=== PATIENT | female | born 1995 | race Caucasian/White ===

== ENCOUNTER 2016-10-30 23:13 | Inpatient (IN) ==
[2016-10-30] MEDS: Ringers Solution, Lactated 1,000 ML IVC SCH ×2 (17:52→19:33)
[2016-10-30 18:12] LABS: Basophils % 0.1 %; Eosinophils # 0.1 K/mcL (0.0-0.6); Eosinophils % 1.3 %; Hemoglobin 11.9 g/dL (11.5-15.4); Immature Granulocytes % 0.4 % (0-4); Lymphocytes # 1.9 K/mcL (0.6-4.6); Lymphocytes % 20.2 %; Mean Corpuscular HGB Conc 33.1 g/dL (31.6-35.5); Mean Corpuscular Hemoglobin 30.1 pg (28.0-33.3); Mean Corpuscular Volume 90.9 fL (83.0-100.0); Mean Platelet Volume 10.7 fL (9.4-12.4); Monocytes # 0.6 K/mcL (0.0-1.3); Monocytes % 6.5 %; Neutrophils # 6.7 K/mcL (1.6-8.9); Platelet Count 266 K/mcL (140-400); Red Blood Count 3.96 M/mcL (3.82-4.97); Red Cell Distribution Width 13.4 % (11.5-14.5); Segmented Neutrophils % 71.5 %
[2016-10-30 18:16] LABS: Bilirubin,Urine Negative (Negative); Blood,Urine Negative (Negative); Clarity,Urine Cloudy (Clear); Color,Urine Yellow (Yellow); Glucose,Urine (UA) Normal (Normal); Ketones,Urine Negative (Negative); Leukocyte Esterase,Urine Moderate (Negative); Nitrite,Urine Negative (Negative); Protein,Urine Negative (Neg-Trace); Specific Gravity,Urine 1.012 (1.010-1.025); Urobilinogen,Urine Normal (Normal)
[2016-10-30 18:19] LABS: Bacteria,Urine Few per hpf (None-Few); Hyaline Casts,Urine None Seen per lpf (None-Few); RBC,Urine 0-3 per hpf (0-3); Squamous Epithelial Cell,Urine Many per lpf (None-Few); WBC,Urine 15-30 per hpf (0-3)
[2016-10-30 18:21] LABS: Protein/Creatinine Ratio,Urine 0.33 mg/mg (0-0.20)
[2016-10-30 18:28] LABS: Alanine Aminotransferase 13 Units/L (0-55); Aspartate Amino Transferase 20 Units/L (5-34); BUN/Creatinine Ratio 11 (6-26); Blood Urea Nitrogen 6 mg/dL (7-20); Lactate Dehydrogenase 158 Units/L (159-327); Uric Acid 3.6 mg/dL (2.6-6.0); eGFR For African Americans > 60 (> 60); eGFR For Non-African Americans > 60 (> 60)
--- NOTE | 2016-10-30 19:25 | OB/GYN History & Physical ---
Date of Encounter: 10/30/16 Time of Encounter: 19:11 Assessment and Plan (1) PIH ( induced hypertension) Current visit: Yes Status: Acute Patient presents with right upper quadrant pain tender to touch and palpation. Patient denies headache or visual changes initial blood pressures increased (140 /85) however, size too small patient placed on appropriate BP cuff (currently 138/78) PIH labs drawn, PIH serologies negative however P/C ratio 0.33. Discussed patient with Dr. Delgado given. P/C ratio and breech presentation ( verified by ultrasound by Dr. Delgado ) will proceed with section after patient has had appropriate nothing by mouth time for anesthesia, patient last ate at 1630. Patient also takes experiencing painful contractions every 2-5 minutes. After Danny states patient may have epidural if desired or Nubain if anesthesia and unable to give epidural Discussed plan of care with patient and patient in agreement at this time all questions asked and answered Qualifiers: Trimester: third trimester Qualified Code(s): O13.3 - Gestational [ -induced] hypertension without significant proteinuria, third trimester (2) Breech presentation Current visit: Yes Status: Acute Qualifiers: Fetus number: single or unspecified fetus Qualified Code(s): O32.1XX0 - Maternal care for breech presentation, not applicable or unspecified (3) 36 weeks gestation of Current visit: Yes Status: Acute (4) Hypothyroid in , antepartum Current visit: Yes Status: Acute History of Present Illness Chief complaint: RUQ pain/contractions HPI: Ms. Peterson is a 21 year old female at 36 and 6 weeks gestation presents to triage with right upper quadrant pain and occasional contractions patient reports good movement and denies leaking of fluid or vaginal bleeding. Right upper quadrant pain and contractions started earlier today. complicated by maternal obesity, hypothyroidism and breech presentation. Labs: A+, rubella immune, GBS negative, all other serologies negative Past Med Surg Social Fam HX - Past Medical History Medical history: thyroid disease Psychiatric history: no psych history - Past Surgical History Surgical History: no surgical history - Social History Smoking Status: Former smoker Smokeless Tobacco Status: No Alcohol use: none Drug use: none - Family History Sister Name: benji driver Age: 23 Family Member Ethnicity: Non- Hx Family Cardiac Disorders: No Hx Family Respiratory Disorders: No Hx Family Cancer: No Hx Family GI Disorders: No Hx Family Genitourinary Disorders: No Hx Family Endocrine Disorder: Yes Hx Family Musculoskeletal Disorders: No Hx Family Neuromuscular Disorders: No Hx Family Neurologic Disorders: No Hx Family HEENT Disorders: No Hx Family Autoimmune Disorders: No Hx Family Reproductive Disorders: No Hx Family Psychosocial Disorders: No Hx Family Medical Disorders: No Obstetrical History - Pregnancies : 2 Para: 1 Medications and Allergies Levothyroxine [Synthroid] 100 mcg PO DAILY 10/30/16 [History] Vit/Iron Fumarate/FA [ Tablet] 1 each PO DAILY 10/30/16 [ History] Allergies codeine Allergy (Verified 10/23/15 21:51) Hives Review of System OB - Gastrointestinal Gastrointestinal: abdominal pain, cramping Exam - Constitutional Constitutional: well developed, well nourished, no acute distress - Neck Neck exam: full ROM - Lungs Respiratory exam: CTAB - Cardiovascular Cardiovascular exam: RRR, +S1, +S2 - Breasts Breast: bilateral: normal - Extremities Deep Tendon Reflex Grade: 2+ Normal - Vulva Vulva: bilateral: normal - Vagina Vagina: Present: normal moisture - Cervix Dilation: 3 Effacement: 50 Station: -2 - Uterus Uterus exam: Present: normal size, normal contour Results Result Diagrams: 10/30/16 18:06 10/30/16 18:06 Abnormal lab results BUN 6 mg/dL (7-20) L 10/30/16 18:06 Creatinine 0.54 mg/dL (0.57-1.11) L 10/30/16 18:06 Lactate Dehydrogenase 158 Units/L (159-327) L 10/30/16 18:06 Urine Clarity Cloudy (Clear) A 10/30/16 18:06 Ur Leukocyte Esterase Moderate (Negative) H 10/30/16 18:06 Urine Microscopic WBC 15-30 per hpf (0-3) H 10/30/16 18:06 Ur Squamous Epith Cells Many per lpf (None-Few) H 10/30/16 18:06 Ur Culture Indicated? YES (NO) A 10/30/16 18:06 Protein/Creatinin Ratio 0.33 mg/mg (0-0.20) H 10/30/16 18:06 All other labs normal. - VTE Reasons for not Prescribing Prophylaxis: Treatment not Indicated - Low risk for VTE
--- NOTE | 2016-10-30 22:08 | Anesthesia Evaluation PreOp ---
Date of Encounter: 10/30/16 Time of Encounter: 22:10 - Past History Planned Operation: primary C Section Cardiac History: Denies any Significant Hx, Other (pre eclampsia) Pulmonary History: Denies Any Significant HX RIDDLER OPERATOR History: Denies Any Significant HX Other Medical History: Denies Any Significant HX, Thyroid (hypothyroid) Anesthesia History: No Prior Anesthetic Complications (never had anesthesia before) : Yes Test: Positive Alcohol Use: none Drug use: none Medications and Allergies Levothyroxine [Synthroid] 100 mcg PO DAILY 10/30/16 [History] Vit/Iron Fumarate/FA [ Tablet] 1 each PO DAILY 10/30/16 [ History] Allergies codeine Allergy (Verified 10/23/15 21:51) Hives - Meds/Allergy Pre-op Review Medications Reviewed: Yes Allergies Reviewed: Yes Beta Blockers on Current Med List: No Anesthesia Results - Labs 10/30/16 18:06 10/30/16 18:06 Anesthesia Exam Height: 60 Weight: 92.8kg NPO (# of Hours): 1730 Pain Scale: 0 - HEENT Pupil (Motor): Pupils equal Mallampati: II Teeth: Normal Oral Opening: Greater than 3 - RIDDLER OPERATOR LOC: Oriented RIDDLER OPERATOR Motor: Normal RUE, Normal LUE, Normal RLE, Normal LLE, Normal Face RIDDLER OPERATOR Sensory: Normal: RUE, LUE, RLE, LLE, Face - Cardiac Rhythm: Regular Murmur: None JVD: No Carotid Bruit: No - Pulmonary Breath Sounds: bilateral Clear Respiratory Effort: Symmetrical Anesthesia Assess/Plan ASA Score: 2 Modified Abiola Scale for Level of Consciousness: Cooperative, oriented, and tranquil Anesthetic Plan: Regional Autologous Blood: No Monitoring Plan: Standard Monitors Recovery Plan: PACU
[~2016-10-30 23:13] MED LIST: *HR* FentaNYL (PF) 100 MCG/2 ML VIAL ONE; *HR* Morphine Sulfate/PF 5 MG/10 ML AMPUL ONE; *HR* Nalbuphine 20 MG/ML AMPUL IVP PRN; *HR* Nalbuphine 20 MG/ML AMPUL ONE; *HR* Oxytocin 10 UNIT/ML VIAL IM ONE; CeFAZolin Pre 2,000 MG/100 ML 2,000 MG/100 ML BAG IVPB ONE; EPHEDrine 50 MG/ML VIAL ONE; Famotidine 20 MG/2 ML VIAL IVP ONE; Famotidine 20 MG/2 ML VIAL IVP PRN; Metoclopramide 10 MG/2 ML VIAL IVP ONE; Naloxone 0.4 MG/ML INJ IVP PRN; Ringers Solution, Lactated 1,000 ML IVC SCH
[2016-10-30] MEDS ORDERED: Propofol 500 MG/50 ML INFUS..BTL ONE (23:26)
[2016-10-30] MEDS ORDERED: *HR* Succinylcholine 200 MG/10 ML VIAL IVP ONE (23:26)
[2016-10-30] MEDS ORDERED: Ondansetron 4 MG/2 ML VIAL IVP PRN (23:30)
[2016-10-30] MEDS ORDERED: *HR* Promethazine 25 MG/ML VIAL IVP PRN (23:30)
[2016-10-30] MEDS ORDERED: Naloxone 0.4 MG/ML INJ IVP PRN ×2 (23:30)
[2016-10-30] MEDS ORDERED: *HR* HYDROmorphone (PF) 1 MG/ML SYRINGE IVP PRN (23:30)
--- NOTE | 2016-10-30 23:44 | Anesthesia Procedures ---
Date of Encounter: 10/30/16 Time of Encounter: 22:40 Procedures: Anesthesia - Epidural/Spinal Patient ID/Chart reviewed: Yes Patient examined: Yes OB Eval: Gestational age: 36.6 OB Eval: : 2 OB Eval: Hx Para: 0 OB Eval: Contractions: Non-stressed pattern Consent Obtained: Yes Supplemental Oxygen: None/Room Air Site Prep: Aseptic Technique, Sterile prep and drape, Povidone-Iodine 1% Patient position: upright Local Anesthetic: Lidocaine 1% Amount of Local Anesthetic used: 3 Interspace Used: L4-L5 Loss of Resistance (LING): No Blood: No CSF: Yes Spinal Dose: marcaine 0.75% 1.4ml fentanyl 10mcg duramorph0.3mg Vitals + FHT's: FHT 155 127/78 89 100 16
--- NOTE | 2016-10-30 23:49 | Anesthesia Progress Note ---
Date of Encounter: 10/30/16 Time of Encounter: 23:03 Anesthesia Note - Note Note: S/P SAB pt complains of numbness tingling in hands bilateral. VSS 100% O2 pt talking converted to GETA, easy bag mask, RSI with cricoid pressure until tube placement confirmed. OG passed with positive return. VSS 10/30/16 23:45
--- NOTE | 2016-10-31 00:13 | OB/GYN Procedure Note ---
Section - Date of procedure: 10/30/16 Preop diagnosis: breech Post-op diagnosis: same Procedure: primary low transverse Surgeon: Yuan Delgado Estimated blood loss (cc): 500 Anesthesiologist: Ariadne Hill Anesthesia Type: General section complications: none Disposition: PACU Specimens: Placenta - (s) Infant A Delivery Date: 10/31/16 Infant Delivery Time: 23:12 Presentation: complete breech Gender: Female Viability: Viable Pounds: 6 Ounces: 15 at 1 minute: 7 at 5 minutes: 9 Placenta: complete extraction - Narrative Narrative: Patient was taken to the operating room. She was placed in supine position and prepped and draped in usual manner. After satisfactory anesthesia was achieved , the abdomen was entered through standard Maylard incision. The Kanchan retractor was placed. The peritoneum overlying the lower uterine segment was incised in U-shaped fashion. Uterine cavity was entered sharply and extended laterally. The buttocks were delivered , legs delivered , torso delivered , arms delivered , and head delivered without difficulty. The umbilical cord was doubly clamped and cut and the was handed to nurse staff further evaluation. The placenta was removed and sent to the pathologist for analysis. Uterus was closed with 0 Monocryl in a single layer. After assurance of hemostasis, the retractor was removed. The abdomen was closed in standard fashion using 0 Vicryl in the fascia and 3-0 Monocryl in the skin. Sterile dressing was applied. The patient did well and was taken to recovery room in satisfactory condition. Counts were correct.
[2016-10-31] MEDS ORDERED: Ondansetron 4 MG/2 ML VIAL IVP PRN (00:26)
[2016-10-31] MEDS ORDERED: Sennosides 8.6 MG TABLET PO PRN (00:26)
[2016-10-31] MEDS ORDERED: Metoclopramide 10 MG/2 ML VIAL IVP PRN (00:26)
[2016-10-31] MEDS: Oxytocin 20 units/ LR 1000 mL 20 UNIT/1,000 ML BAG IVC SCH ×2 (02:25→10:50)
[2016-10-31] MEDS ORDERED: Oxytocin 20 units/ LR 1000 mL 20 UNIT/1,000 ML BAG IVC ONE (02:25)
[2016-10-31 05:21] LABS: Basophils % 0.2 %; Eosinophils # 0.1 K/mcL (0.0-0.6); Eosinophils % 0.5 %; Hematocrit 30.2 % (35.3-44.9); Hemoglobin 10.1 g/dL (11.5-15.4); Immature Granulocytes % 0.6 % (0-4); Lymphocytes % 16.2 %; Mean Corpuscular HGB Conc 33.4 g/dL (31.6-35.5); Mean Corpuscular Hemoglobin 30.7 pg (28.0-33.3); Mean Corpuscular Volume 91.8 fL (83.0-100.0); Mean Platelet Volume 10.9 fL (9.4-12.4); Monocytes # 0.7 K/mcL (0.0-1.3); Monocytes % 5.6 %; Neutrophils # 9.6 K/mcL (1.6-8.9); Platelet Count 200 K/mcL (140-400); Red Blood Count 3.29 M/mcL (3.82-4.97); Red Cell Distribution Width 13.5 % (11.5-14.5); Segmented Neutrophils % 76.9 %
--- NOTE | 2016-10-31 07:01 | Anesthesia Evaluation Post Op ---
Date of Encounter: 10/31/16 Time of Encounter: 02:00 - Vital Signs Vital Signs: Vital Signs/O2 Sat/Glucose, Most Current Temp Pulse Resp BP Pulse Ox 10/31/16 05:25 98.6 F 93 12 107/69 99 10/31/16 04:25 98.8 F 95 12 123/72 99 10/31/16 03:25 98.1 F 90 12 113/63 98 10/31/16 03:06 97.6 F 93 14 113/62 98 - Lungs Lungs: Clear Ascult./Percussion - Airway Airway: Non-obstructed - Cardiovascular Regular Rate - Mental Status Mental Status: Alert & Oriented, Answers Appropriately - Pain Pain Scale: 0 - Nausea Vomiting Nausea Vomiting: Not Present - Hydration Hydration: Ice chips - Discharge PostOp Status: Transfer Patient to floor
--- NOTE | 2016-10-31 07:45 | OB/GYN Progress Note ---
Date of Encounter: 10/31/16 Time of Encounter: 07:42 - Assessment and Plan (1) Status post primary low transverse section Current Visit: Yes Status: Acute Continue routine postop/ care discharge home tomorrow follow up in 2 weeks for incision check (2) Breast feeding status of mother Current Visit: Yes Status: Acute support prn (3) Breech presentation Current Visit: Yes Status: Acute primary c/s for breech Qualifiers: Fetus number: single or unspecified fetus Qualified Code(s): O32.1XX0 - Maternal care for breech presentation, not applicable or unspecified Subjective - Subjective Principal diagnosis: Status post primary c/s for breech presentation Interval history: Patient resting in bed. EPCD on bilateral lower extremities. Connie dressing on incision: clean, dry and intact. lochia is light without blood clots. Patient reports: other (Mckeon catheter draining clear yellow urine) : doing well Objective - Vital Signs Latest vital signs: Vital Signs Temp Pulse Resp BP Pulse Ox 10/31/16 05:25 98.6 F 93 12 107/69 99 10/31/16 04:25 98.8 F 95 12 123/72 99 10/31/16 03:25 98.1 F 90 12 113/63 98 10/31/16 03:06 97.6 F 93 14 113/62 98 10/31/16 02:55 97.6 F 93 14 113/62 98 10/31/16 02:25 98.1 F 83 16 91/52 97 Intake and Output 10/30/16 10/30/16 10/31/16 15:59 23:59 07:59 Intake Total 1000 / 1000 Output Total 850 / 850 Balance 1000 / 1000 -850 / -850 Intake: IV Fluids 1000 / 1000 Lactated Ringers 1,000 ML 1000 / 1000 @ 125 mls/hr IVC .Q8H [facility] Rx#:[id number] Output: Urine 850 / 850 Other: Weight 92.8 kg 89.925 kg Patient Weight 10/31/16 23:59 Weight 89.925 kg - Exam Lungs: bilateral: normal Extremities: Present: normal Abdomen: Present: normal appearance, soft Incision: Present: dry, dressed (Connie dressing) Fundal Height: 2 (U/2) - Labs Labs: Laboratory Results - last 24 hr 10/30/16 10/30/1617 18:06 18:06 18:06 WBC 9.4 RBC 3.96 Hgb 11.9 Hct 36.0 MCV 90.9 MCH 30.1 MCHC 33.1 RDW 13.4 Plt Count 266 MPV 10.7 Immature Gran % 0.4 Seg Neutrophils % 71.5 Lymphocytes % 20.2 Monocytes % 6.5 Eosinophils % 1.3 Basophils % 0.1 Neutrophils # 6.7 Lymphocytes # 1.9 Monocytes # 0.6 Eosinophils # 0.1 Basophils # 0.0 BUN 6 L Creatinine 0.54 L Est GFR ( Amer) > 60 Est GFR (Non-Af Amer) > 60 BUN/Creatinine Ratio 11 Uric Acid 3.6 AST 20 ALT 13 Lactate Dehydrogenase 158 L Urine Color Yellow Urine Clarity Cloudy A Urine pH 6.0 Ur Specific [place] 1.012 Urine Protein Negative Urine Glucose (UA) Normal Urine Ketones Negative Urine Blood Negative Urine Nitrite Negative Urine Bilirubin Negative Urine Urobilinogen Normal Ur Leukocyte Esterase Moderate H Urine Microscopic RBC 0-3 Urine Microscopic WBC 15-30 H Ur Squamous Epith Cells Many H Urine Bacteria Few Hyaline Casts None Seen Ur Culture Indicated? YES A Urine Creatinine Protein/Creatinin Ratio Urine Total Protein 10/30/16 10/31/16 18:06 05:09 WBC 12.4 H RBC 3.29 L Hgb 10.1 L D Hct 30.2 L MCV 91.8 MCH 30.7 MCHC 33.4 RDW 13.5 Plt Count 200 MPV 10.9 Immature Gran % 0.6 Seg Neutrophils % 76.9 Lymphocytes % 16.2 Monocytes % 5.6 Eosinophils % 0.5 Basophils % 0.2 Neutrophils # 9.6 H Lymphocytes # 2.0 Monocytes # 0.7 Eosinophils # 0.1 Basophils # 0.0 BUN Creatinine Est GFR ( Amer) Est GFR (Non-Af Amer) BUN/Creatinine Ratio Uric Acid AST ALT Lactate Dehydrogenase Urine Color Urine Clarity Urine pH Ur Specific [place] Urine Protein Urine Glucose (UA) Urine Ketones Urine Blood Urine Nitrite Urine Bilirubin Urine Urobilinogen Ur Leukocyte Esterase Urine Microscopic RBC Urine Microscopic WBC Ur Squamous Epith Cells Urine Bacteria Hyaline Casts Ur Culture Indicated? Urine Creatinine 36 Protein/Creatinin Ratio 0.33 H Urine Total Protein 12
[2016-10-31] MEDS ORDERED: NON-FORMULARY MEDICATION 1 EACH EACH (Prenatal Vit/Iron Fumarate/Fa [Prenatal Tablet] 1 EA PO SCH (09:00)
[2016-10-31] MEDS: Prenatal Vit/FA 1 EACH TABLET PO SCH (09:51)
[2016-10-31] MEDS: Ibuprofen 600 MG TABLET PO PRN ×2 (12:39→19:47)
[2016-10-31] MEDS: *HR* OxyCODONE/APAP 5/325 TABLET PO PRN ×2 (15:06→22:31)
[2016-10-31] MEDS: Simethicone 80 MG TAB.CHEW PO PRN (15:06)
[2016-11-01] MEDS: *HR* OxyCODONE/APAP 5/325 TABLET PO PRN (04:31)
[2016-11-01] MEDS: Simethicone 80 MG TAB.CHEW PO PRN (07:52)
[2016-11-01] MEDS: Prenatal Vit/FA 1 EACH TABLET PO SCH (07:53)
[2016-11-01] MEDS: Ibuprofen 600 MG TABLET PO PRN (07:53)
[2016-11-01 09:59] VITALS: BP 101/69
--- NOTE | 2016-11-01 10:35 | Discharge Summary ---
Date of Encounter: 11/01/16 Time of Encounter: 10:32 - Discharge Diagnosis (1) Status post primary low transverse section Priority: Primary Status: Acute Comments: continue routine postop/ care follow up in 2 weeks for incision check with Dr. Delgado (2) Breast feeding status of mother Priority: Secondary Status: Acute Comments: support prn (3) Breech presentation Priority: Secondary Status: Acute Qualifiers: Fetus number: single or unspecified fetus Qualified Code(s): O32.1XX0 - Maternal care for breech presentation, not applicable or unspecified - Discharge Medications Prescriptions: OxyCODONE/APAP 5/325 [Percocet 5/325 MG] 1 each PO Q4HR PRN #30 tablet PRN Reason: Moderate pain 4-6 Ibuprofen [Motrin] 600 mg PO Q6HR PRN #60 tablet PRN Reason: Cramping Breast Pump [BREAST PUMP] 1 each .ROUTE AD #1 each Docusate [Colace] 100 mg PO BID #60 capsule Home Medications: Levothyroxine [Synthroid] 100 mcg PO DAILY 10/30/16 [History] Vit/Iron Fumarate/FA [ Tablet] 1 each PO DAILY 10/30/16 [ History] Breast Pump [BREAST PUMP] 1 each .ROUTE AD #1 each 11/01/16 [Rx] Docusate [Colace] 100 mg PO BID #60 capsule 11/01/16 [Rx] Ibuprofen [Motrin] 600 mg PO Q6HR PRN #60 tablet 11/01/16 [Rx] Levothyroxine [Synthroid] 100 mcg PO DAILY tablet 11/01/16 [Rx] OxyCODONE/APAP 5/325 [Percocet 5/325 MG] 1 each PO Q4HR PRN #30 tablet 11/01/16 [Rx] Vit/FA 1 each PO DAILY tablet 11/01/16 [Rx] Allergies/Adverse Reactions: Allergies codeine Allergy (Verified 10/23/15 21:51) Hives Data Procedures and tests throughout hospitalization: Laboratory Tests 10/30/16 10/30/16 10/30/16 18:06 18:06 18:06 WBC 9.4 RBC 3.96 Hgb 11.9 Hct 36.0 MCV 90.9 MCH 30.1 MCHC 33.1 RDW 13.4 Plt Count 266 MPV 10.7 Immature Gran % 0.4 Seg Neutrophils % 71.5 Lymphocytes % 20.2 Monocytes % 6.5 Eosinophils % 1.3 Basophils % 0.1 Neutrophils # 6.7 Lymphocytes # 1.9 Monocytes # 0.6 Eosinophils # 0.1 Basophils # 0.0 BUN 6 L Creatinine 0.54 L Est GFR ( Amer) > 60 Est GFR (Non-Af Amer) > 60 BUN/Creatinine Ratio 11 Uric Acid 3.6 AST 20 ALT 13 Lactate Dehydrogenase 158 L Urine Color Yellow Urine Clarity Cloudy A Urine pH 6.0 Ur Specific [place] 1.012 Urine Protein Negative Urine Glucose (UA) Normal Urine Ketones Negative Urine Blood Negative Urine Nitrite Negative Urine Bilirubin Negative Urine Urobilinogen Normal Ur Leukocyte Esterase Moderate H Urine Microscopic RBC 0-3 Urine Microscopic WBC 15-30 H Ur Squamous Epith Cells Many H Urine Bacteria Few Hyaline Casts None Seen Ur Culture Indicated? YES A Urine Creatinine Protein/Creatinin Ratio Urine Total Protein 10/30/16 10/31/16 18:06 05:09 WBC 12.4 H RBC 3.29 L Hgb 10.1 L D Hct 30.2 L MCV 91.8 MCH 30.7 MCHC 33.4 RDW 13.5 Plt Count 200 MPV 10.9 Immature Gran % 0.6 Seg Neutrophils % 76.9 Lymphocytes % 16.2 Monocytes % 5.6 Eosinophils % 0.5 Basophils % 0.2 Neutrophils # 9.6 H Lymphocytes # 2.0 Monocytes # 0.7 Eosinophils # 0.1 Basophils # 0.0 BUN Creatinine Est GFR ( Amer) Est GFR (Non-Af Amer) BUN/Creatinine Ratio Uric Acid AST ALT Lactate Dehydrogenase Urine Color Urine Clarity Urine pH Ur Specific [place] Urine Protein Urine Glucose (UA) Urine Ketones Urine Blood Urine Nitrite Urine Bilirubin Urine Urobilinogen Ur Leukocyte Esterase Urine Microscopic RBC Urine Microscopic WBC Ur Squamous Epith Cells Urine Bacteria Hyaline Casts Ur Culture Indicated? Urine Creatinine 36 Protein/Creatinin Ratio 0.33 H Urine Total Protein 12 Date of admission: 10/30/16 23:13 Primary care physician: PCP DAYNA Discharging clinician: Cristal Angeles Anticipated date of discharge: 11/01/16 - Patient Status Disposition: Home, Self-Care Condition: Good Functional capacity at discharge: independent ambulation - Discharge Instructions Follow Up With: NO,PCP [Primary Care Provider] - Yuan Delgado MD [Partnered Physician] - Additional Instructions: Perineal Care: Always wipe front to back Change your pad frequently Use your john bottle with warm water and spray front to back Do not douche, use tampons, have sexual intercourse or put anything in your vagina for 4-6 weeks after delivery Bleeding: Vaginal bleeding can last up to 6 weeks Your menstrual period may return as early as 6 weeks after you are discharged from the hospital [place]/Stitches Care: Vaginal Delivery Vaginal stitches will dissolve within 4-6 weeks Follow perineal care instructions Care Stitches will dissolve on their own If you have mira, they will need to be removed in the doctors office within 5-7 days. You may shower with stitches or mira Drip plan or soapy water over the incision to clean. Pat dry gently with a clean towel. Make sure you completely dry under the skin folds DO NOT USE powders, lotions, rubbing alcohol or hydrogen peroxide on or around your incision. This will slow your wound healing It is normal to have soreness, burning, tingling, itchiness and/or numbness as your incision heals Activity: Rest frequently Do not lift anything heavier than a gallon of milk, up to 10-15 pounds No driving for 1-2 weeks for Vaginal delivery No driving for 2-4 weeks for delivery Take stairs slowly, one at a time Gradually increase your daily activity until you are back to your normal routine Do not exercise until you have had your follow-up appointment Bathing: Take a shower daily Do not take a tub bath for the first 4 weeks Diet: Drink plenty of water and fruit juices Eat a well-balanced diet with foods high in fiber such as fruits and vegetables Depression: Your hormones have a major impact on your feelings and emotions. Hormone imbalance may cause changes in your mood, creating unfamiliar thoughts and actions. Support is available to help you understand and cope with these feelings and mood changes. If you answer yes to any of the following questions, please call your health care provider: Are you having trouble sleeping? Are you feeling isolated? Have you lost your appetite? Are you having thoughts of hurting yourself or others? WARNING SIGNS: Heavy bleeding from the vagina (blood is bright red and soaks a sanitary pad in an hour or less.) Passing a blood clot larger than your fist Discharge from the vagina that has a bad odor Temperature over 100.4 F, or if you feel cold and have chills An episiotomy site that is warm, swollen or oozing. Use a mirror if needed Urination (pee) that is painful, very red and swollen or leaking fluid An incision that is painful, very red and swollen and leaking fluid An incision that has come open Breasts that are painful or full with flu like symptoms Redness, warmth or swelling in the calf of your leg Trouble breathing, dizziness, visual disturbance or faintness *Notify your health care provider immediately or go to the nearest Emergency Room if you experience any of the above signs.* To contact the nurses station 24 hours a day, For non-urgent, routine questions, please call the office at - Diet and Activity Activity: increase activity as tolerated Diet: regular diet Hospital Course Procedures: [facility] report reviewed by SALEEM Mack prior to discharge. Reason for admission: active labor Delivery: section (breech presentation) Laceration: none Other procedures: none complications: none Discharge diagnosis: delivery baby: female (breast feeding) Time Attestation: Total time spent providing and/or coordinating discharge services: Time Spent: Less than 30 minutes - VTE Reasons for not Prescribing Prophylaxis: Treatment not Indicated - Low risk for VTE Documentation of Mechanical Device: Intermittent pneumatic compression device Exam - Constitutional Vitals: Temp Pulse Resp BP Pulse Ox 97.6 F 98 16 101/69 98 11/01/16 08:30 11/01/16 08:30 11/01/16 08:30 11/01/16 08:30 11/01/16 08:30 General appearance IM: A&O X 3, pleasant, answers questions appropriately - Respiratory Respiratory exam: Present: CTAB - Cardiovascular Cardiovascular exam IM: Present: RRR, +S1, +S2 - GI/Abdominal GI/Abdominal exam IM: normal bowel sounds Incision: normal, dry, intact, dressed (ENRIQUE dressing) - Uterine Tone: Firm Uterus Position: 2 Fingers Below Umbilicus, Midline - Extremities Exam Extremities exam IM: Present: full ROM, normal capillary refill, normal inspection - Neurological Exam Neurological exam: alert, oriented X3, reflexes normal
== END 2016-11-01 12:18 | disposition home or self-care (01) | DRG 540 ==
LOC: 1NENULAB → 1NENUOBS 10-31 02:55
PROVIDERS: ADMIT Obstetrics & Gynecology; ATTEND Obstetrics & Gynecology